=== PATIENT | male | born 1960 | race Caucasian/White ===

== ENCOUNTER 2018-10-24 20:48 | Emergency (ER) | payer OTHER ==
[~2018-10-24] VITALS: Ht 157.5 cm; Wt 72.7 kg
[2018-10-24] MEDS ORDERED: ASPIRIN325 MG PO (21:04)
[2018-10-24] MEDS ORDERED: METOPROL TAR25 M1 PO (21:05)
[2018-10-24] MEDS ORDERED: EFFIENT10 MG PO (21:10)
[2018-10-24 21:16] LABS: HEMATOCRIT 28.6 % (39.0-50.0); HEMOGLOBIN 8.7 g/dl (14.0-18.0); IMMATURE GRANULOCYTES 0.2 % (0.0-5.0); MEAN CELL VOLUME 77.7 fL CALC (80.0-100.0); MEAN CORPUSCULAR HGB 23.6 pG CALC (26.0-32.0); MEAN CORPUSCULAR HGB CONC 30.4 g/L CALC (32.0-36.0); NEUT# 7.1 thou/uL (1.82-7.42); RED BLOOD COUNT 3.68 mill/uL (4.70-6.10); RED CELL DISTRI WIDTH 16.6 % (11.5-15.5)
[2018-10-24 21:34] LABS: ALBUMIN 3.7 g/dL (3.2-5.0); ALKALINE PHOSPHATASE 47 u/l (38-126); ANION GAP 13 (6-22 (CALC)); BILIRUBIN, TOTAL 0.5 mg/dL (0.0-1.4); BUN 17 mg/dL (9-20); BUN/CREATININE RATIO 16 (12-20 (CALC)); CARBON DIOXIDE 25 mmol/l (22-30); CHLORIDE 106 mmol/l (95-108); CREATININE 1.1 mg/dL (0.7-1.3); GFR > 60 ML/MIN (>=60 (CALC)); GFR FOR AFR.AMER. > 60 ML/MIN (>=60 (CALC)); SGOT/AST 21 u/l (17-59); SODIUM 140 mmol/l (137-146); TOTAL PROTEIN 5.9 g/dL (6.3-8.2)
[2018-10-25 01:58] VITALS: BP 107/57
== END 2018-10-25 01:58 | disposition short-term general hospital (02) | DRG 379 ==
LOC: ED 20:48
PROVIDERS: Emergency Medicine
PROC: 30233N1 Transfusion of Nonautologous Red Blood Cells into Peripheral Vein, Percutaneous Approach (ICD-10-PCS; principal; 2018-10-25)
DX: K62.5 Hemorrhage of anus and rectum (principal); D64.9 Anemia, unspecified; K64.8 Other hemorrhoids
CPT/HCPCS: P9016; Q9967; S0164